=== PATIENT | female | born 1990 | race Hispanic/Latino ===

== ENCOUNTER 2017-09-20 13:08 | Inpatient (IN) | payer OTHER ==
[2017-09-20] MEDS ORDERED: Carboprost 250 MCG/ML AMP IM PRN (14:07)
[2017-09-20] MEDS ORDERED: LR / Pitocin 40 units/1000 ml 1,000 ML IV PRN (14:07)
[2017-09-20] MEDS ORDERED: Diphenoxylate HCl/Atropine Tablet PO PRN ×2 (14:07)
[2017-09-20] MEDS ORDERED: Lidocaine 1% (PF) 30 ML VIAL SC PRN (14:07)
[2017-09-20] MEDS ORDERED: Ondansetron HCl/PF 4 MG/2 ML Vial IVP PRN ×2 (14:07→23:05)
[2017-09-20] MEDS ORDERED: Promethazine HCl 25 MG/ML VIAL IM PRN ×2 (14:07→23:05)
[2017-09-20] MEDS ORDERED: HYDROcodone/Acetaminophen 5/325 mg Tablet PO PRN ×2 (14:07)
[2017-09-20] MEDS ORDERED: Ibuprofen 800 MG TAB PO PRN (14:07)
[2017-09-20] MEDS ORDERED: Acetaminophen 500 MG TAB PO PRN (14:07)
[2017-09-20] MEDS ORDERED: Misoprostol 200 MCG TAB PR PRN (14:07)
[2017-09-20] MEDS ORDERED: Methylergonovine 0.2 MG/ML VIAL IM PRN (14:07)
[2017-09-20] MEDS ORDERED: Penicillin G Potassium 5 MILL.UNITS in Sodium Chloride 0.9% 100 ML IVPB SCH (14:15)
[2017-09-20] MEDS ORDERED: LR 500 ML/Oxytocin 10 units 500 ML IV SCH (14:15)
[2017-09-20] MEDS: Lactated Ringer's 1,000 ML IV SCH ×3 (14:15→23:10)
[2017-09-20] MEDS ORDERED: Penicillin G Potassium 5 MILL.UNITS VIAL ONE (14:33)
[2017-09-20 14:53] LABS: Hemoglobin 11.4 g/dL (12.0-16.0); Mean Corpuscular HGB CONC 33.6 g/dL (32.0-36.0); Mean Corpuscular Hemoglobin 29.3 pg (27.0-31.0); Mean Corpuscular Volume 87.1 fl (81.0-99.0); Mean Platelet Volume 7.3 fL (7.4-10.4); Platelet Count 339 thou/uL (130-400); RBC Distribution Width 13.9 % (11.5-14.5); White Blood Cell (WBC) Count 8.9 thou/uL (4.8-10.8)
[2017-09-20 15:31] LABS: HBSAg Index 0.15 S/CO (0-0.99); Hep B Surf Ag Non-Reactive S/CO (NonReactive); Syphilis Antibody Nonreactive (Nonreactive); Syphilis Antibody Index 0.03 S/CO (<1.00 Non-Reactive)
[2017-09-20 17:41] VITALS: BMI 31.9
[2017-09-20] MEDS: Penicillin G 2.5 MILL.units 2.5 MILL.UNITS in Premix Bag 1 BAG IVPB SCH ×2 (18:06→22:30)
[2017-09-20] MEDS ORDERED: Bupivacaine 0.5% 20 ML, Fentanyl 400 MCG in Sodium Chloride 0.9% 72 ML EPIDURAL SCH (19:30)
[2017-09-20] MEDS ORDERED: DISCONTINUE ALL PREVIOUS NARCOTICS FS SCH (19:30)
[2017-09-20] MEDS ORDERED: Lactated Ringer's 500 ML IV PRN (23:05)
[2017-09-20] MEDS ORDERED: Naloxone HCl 0.4 mg/ml Vial IVP PRN ×2 (23:05)
[2017-09-20] MEDS ORDERED: ePHEDrine/0.9% NaCl/PF SYRINGE 50 mg/10 ml SLOW IVP PRN (23:05)
[2017-09-20] MEDS ORDERED: diphenhydrAMINE 50 MG/ML VIAL IVP PRN (23:05)
[2017-09-20] MEDS ORDERED: Acetaminophen 325 MG TAB PO PRN (23:05)
[2017-09-20] MEDS ORDERED: Eucerin (Mineral Oil/Petrolatum,White) 30 gm Jar TOP PRN (23:05)
[2017-09-20] MEDS ORDERED: Fentanyl 4mcg/Marcaine 0.1% Cassette 100 ML EPIDURAL SCH (23:15)
[2017-09-20] MEDS ORDERED: Communication Order-Pharmacy FS SCH (23:15)
[2017-09-21] MEDS: Penicillin G 2.5 MILL.units 2.5 MILL.UNITS in Premix Bag 1 BAG IVPB SCH ×2 (03:31→11:10)
[2017-09-21] MEDS ORDERED: LR / Pitocin 40 units/1000 ml 1,000 ML ONE (04:12)
[2017-09-21] MEDS ORDERED: Lidocaine 1% (PF) 30 ML VIAL ONE (04:12)
--- NOTE | 2017-09-21 07:16 | PDOC.OPDEL ---
OB Operative/Delivery Note Delivery Dr/Surgeon: Tracy Assist: n/a Pre-Delivery Diagnosis: ruptured membrane Procedure/Post Delivery Dx: spontaneous vaginal delivery Weeks gestation: 38 Anesthesia: epidural - Findings A Sex: male Weight: 7 lb 15 oz - 1 min: 9 - 5 min: 9 - Additional Findings/Plan Placenta delivered: spontaneous Repaired Obstetrical Laceration: 2nd degree (repaired with 2-0 vicryl in usual fashion excellent hemostasis) Estimated blood loss: 300 Post delivery plan: routine recovery
--- NOTE | 2017-09-21 07:17 | PDOC.LDHP ---
Labor and Delivery H&P Chief complaint: loss of fluid HPI: 27yo at 37w6d with spotting and LOF since 0800 yesterday, confirmed rupture in office. Current gestational age (weeks): 37 Dating criteria: last menstrual period Grav: 1 Para: 0 Current complications: none Abnormal US findings: No Current medications: pre- vitamins Allergies/Adverse Reactions: Allergies Allergy/AdvReac Type Severity Reaction Status Date / Time cefaclor [From Ceclor] Allergy Verified 09/20/17 14:35 Social history: none - Physical Exam Vital signs reviewed and normal: yes General: NAD Heart: RRR Lungs: CTAB Abdomen: gravid Extremeties: no edema FHT: category 1 - Vaginal Exam cm dilated: 2 Effacement: 75% Station: -1 - OB Labs RH: positive Antibody Screen: negative HIV: negative RPR: negative HEPSAg: negative 1 hour GCT: positive 3 hour GTT: negative GBS: positive Rubella: immune - Assessment L&D Assessment: term rupture in membranes - Plan Plan: admit to L&D, labor augmentation if indicated, GBS antibiotic prophylaxis , informed consent obtained, anesthesia consult for pain management
[2017-09-21] MEDS ORDERED: Adacel (T-DAP) 0.5 ML VIAL IM ONE (10:41)
[2017-09-21] MEDS ORDERED: diphenhydrAMINE 25 MG CAP PO PRN (10:41)
[2017-09-21] MEDS ORDERED: Milk Of Magnesia 30 ML UDCUP PO PRN (10:41)
[2017-09-21] MEDS ORDERED: Acetaminophen/Codeine 30-300mg Tablet PO PRN ×2 (10:41)
[2017-09-21] MEDS ORDERED: Preparation H Ointment 28 GM TUBE PR PRN (10:41)
[2017-09-21] MEDS ORDERED: LR / Pitocin 40 units/1000 ml 1,000 ML IV SCH (10:41)
[2017-09-21] MEDS ORDERED: Benzocaine/Menthol 20-0.5% 60 ML CAN TOP PRN (10:41)
[2017-09-21] MEDS ORDERED: Bisacodyl 10 MG SUPP PR PRN (10:41)
[2017-09-21] MEDS ORDERED: Ondansetron HCl/PF 4 MG/2 ML Vial IVP PRN (10:41)
[2017-09-21] MEDS ORDERED: Lanolin Ointment 7 GM TUBE TOP PRN (10:41)
[2017-09-21] MEDS: Ferrous Sulfate 325 MG TAB PO SCH ×2 (11:19→14:19)
[2017-09-21] MEDS: Docusate Calcium (SURFAK) 240 MG CAP PO SCH ×2 (11:58→21:11)
[2017-09-21] MEDS: Prenatal Vitamin 1 TAB PO SCH (11:58)
[2017-09-21] MEDS: Ibuprofen 800 MG TAB PO SCH ×2 (14:14→21:11)
[2017-09-22] MEDS: Ibuprofen 800 MG TAB PO SCH ×3 (03:57→21:36)
--- NOTE | 2017-09-22 08:11 | PRG ---
DATE OF SERVICE: 09/22/2017 PRIMARY OB: Dr. Syl Molina. Patient is day #1, status post a term spontaneous vaginal delivery. She is tolerating p.o ., voiding on her own, having decreased lochia and good pain control. PHYSICAL EXAMINATION: VITAL SIGNS: This morning, blood pressure is 94/56, temperature 97.7, pulse of 96, respiratory rate of 20. GENERAL: She appears to be in no acute distress. She is alert and oriented, cooperative, and pleasa nt to interact with. HEENT: Head is normocephalic, atraumatic. ABDOMEN: Soft. Fundus is firm. EXTREMITIES: Nontender, nonedematous. ASSESSMENT AND PLAN: The patient is day #1, status post an uncomplicated term spontaneous vaginal delivery. Anticipate discharge tomorrow.
[2017-09-22] MEDS: Prenatal Vitamin 1 TAB PO SCH (08:36)
[2017-09-22] MEDS: Docusate Calcium (SURFAK) 240 MG CAP PO SCH ×2 (08:36→21:36)
[2017-09-22] MEDS: Ferrous Sulfate 325 MG TAB PO SCH (08:36)
[2017-09-23] MEDS: Ferrous Sulfate 325 MG TAB PO SCH ×2 (03:18→12:37)
[2017-09-23] MEDS: Ibuprofen 800 MG TAB PO SCH (05:54)
--- NOTE | 2017-09-23 07:01 | PDOC.PP ---
Post Progress Note Post Day #: 2 Subjective: Doing well PO intake tolerated: yes Flatus: yes Ambulation: yes Vital Signs (12 hours) Temp Pulse Resp BP 09/22/17 20:15 97.5 F L 83 18 102/63 Weight Weight 169 lb - Physical Examination General: NAD Cardiovascular: no m/r/g, RRR Respiratory: clear to auscultation bilaterally Abdominal: no distention, appropriately TTP Extremities: negative homans (B) Psychiatric: A&Ox3, normal affect Result Diagrams: 09/20/17 14:43 Additional Labs: Post Labs Hep Bs Antigen Non-Reactive S/CO (NonReactive) 09/20/17 14:43 (1) Vaginal delivery Code(s): O80 - ENCOUNTER FOR FULL-TERM UNCOMPLICATED DELIVERY Status: Acute (2) state Code(s): Z39.2 - ENCOUNTER FOR ROUTINE FOLLOW-UP Status: Acute - Assessment/Plan Plan: Patient seen at bedside. OK for discharge today. No acute concerns noted. Home with follow up in 4 weeks. Delivery MD: Tracy
--- NOTE | 2017-09-23 07:02 | PDOC.EVN ---
Event Note - Event Note Event Note: DISCHARGE NOTE Patient seen by me on date of discharge (PPD2), 09/23/17. Patient s/p by Dr Molina. Home on 09/23/17 without complication. Please see PPD2 progress notes.
[2017-09-23] MEDS: Prenatal Vitamin 1 TAB PO SCH (08:25)
[2017-09-23] MEDS: Docusate Calcium (SURFAK) 240 MG CAP PO SCH (08:25)
[2017-09-23 08:35] VITALS: TEMP 98.5
[2017-09-23 08:36] VITALS: BP 105/66
== END 2017-09-23 12:05 | disposition home or self-care (01) | DRG 775 ==
LOC: L&D/OP 13:08 → L&D 13:32 → 3SW 09-21 10:14
PROVIDERS: ADMIT Student in an Organized Health Care Education/Training Program; ATTEND Student in an Organized Health Care Education/Training Program
PROC: 10E0XZZ Delivery of Products of Conception, External Approach (ICD-10-PCS; principal; 2017-09-21)
PROC: 0KQM0ZZ Repair Perineum Muscle, Open Approach (ICD-10-PCS; 2017-09-21)
DX: O42.02 Full-term premature rupture of membranes, onset of labor within 24 hours of rupture (principal); O70.1 Second degree perineal laceration during delivery; O99.820 Streptococcus B carrier state complicating pregnancy; Z3A.37 37 weeks gestation of pregnancy; Z88.1 Allergy status to other antibiotic agents; Z37.0 Single live birth
CPT/HCPCS: 36415; 51702; 85027; 86780; 87340; 99285; J2001; J2405; J2540; J2550; J3010; J3490; J7050; J7120

== ENCOUNTER 2019-03-12 08:47 | Day surgery (SDC) | payer OTHER ==
[2019-03-12 09:27] VITALS: BMI 31.5
[2019-03-12] MEDS ORDERED: Mineral Oil ENEMA PR SCH (09:30)
[2019-03-12] MEDS ORDERED: Mineral Oil PER 1 ML PO SCH (09:45)
--- NOTE | 2019-03-12 10:18 | PDOC.EVN ---
Event Note - Event Note Event Note: Asked to see by Dr. Molina, pt. here for ECV. USG shows vtx, BHUMIKA appears adequate. FHTs are reassuring. Dr. Molina notified.
[2019-03-12] MEDS ORDERED: hydrALAZINE 20 MG/ML VIAL SLOW IVP PRN (10:32)
--- NOTE | 2019-03-12 10:34 | PDOC.EVN ---
Event Note - Event Note Event Note: 28yo at 37w6d presented for ECV due to transverse presentation. No complaints, good FM, no ctx VB LOF. No sx PIH VSSAF NAD NST reactive Cat 1 Sono by josefa Estrella DC home FU on .
== END 2019-03-12 10:36 | disposition home or self-care (01) ==
LOC: L&D/OP 08:47
PROVIDERS: ATTEND Student in an Organized Health Care Education/Training Program
DX: O32.2XX0 Maternal care for transverse and oblique lie, not applicable or unspecified (principal); Z3A.37 37 weeks gestation of pregnancy; Z88.1 Allergy status to other antibiotic agents
CPT/HCPCS: 76815

== ENCOUNTER 2019-03-16 09:24 | Inpatient (IN) | payer OTHER ==
[2019-03-16] MEDS ORDERED: Ibuprofen 800 MG TAB PO PRN (10:28)
[2019-03-16] MEDS ORDERED: Butorphanol Tartrate 1 MG/ML VIAL SLOW IVP PRN (10:28)
[2019-03-16] MEDS ORDERED: Promethazine HCl 25 MG/ML VIAL IM PRN ×2 (10:28→17:40)
[2019-03-16] MEDS ORDERED: HYDROcodone/Acetaminophen 5/325 mg Tablet PO PRN ×2 (10:28)
[2019-03-16] MEDS ORDERED: Ondansetron PF 4 MG/2 ML Vial IVP PRN ×2 (10:28→17:40)
[2019-03-16] MEDS ORDERED: hydrALAZINE 20 MG/ML VIAL SLOW IVP PRN (10:28)
[2019-03-16] MEDS ORDERED: Lidocaine 1% (PF) 30 ML VIAL SC PRN (10:28)
[2019-03-16] MEDS ORDERED: Lactated Ringer's 1,000 ML IV SCH (10:30)
[2019-03-16] MEDS ORDERED: Penicillin G Potassium 5 MILL.UNITS in Sodium Chloride 0.9% 100 ML IVPB SCH (10:30)
[2019-03-16] MEDS ORDERED: NS w/ Oxytocin 10 units 500 ML IV SCH (10:30)
[2019-03-16 10:54] VITALS: BMI 31.4
[2019-03-16] MEDS: Lactated Ringer's 1,000 ML IV SCH ×2 (12:05→20:21)
[2019-03-16 12:28] LABS: Hemoglobin 11.2 g/dL (12.0-16.0); Mean Corpuscular HGB CONC 34.3 g/dL (32.0-36.0); Mean Corpuscular Hemoglobin 29.5 pg (27.0-31.0); Mean Corpuscular Volume 86.2 fL (78.0-98.0); Mean Platelet Volume 7.7 fL (7.4-10.4); Platelet Count 294 thou/uL (130-400); RBC Distribution Width 12.2 % (11.5-14.5); Red Blood Cell (RBC) Count 3.79 mill/uL (4.20-5.40); White Blood Cell (WBC) Count 7.1 thou/uL (4.8-10.8)
[2019-03-16 13:07] LABS: Syphilis Antibody Nonreactive (Nonreactive); Syphilis Antibody Index 0.03 S/CO (<1.00 Non-Reactive)
[2019-03-16 13:08] LABS: HBSAg Index 0.25 S/CO (0-0.99); Hep B Surf Ag Non-Reactive S/CO (NonReactive)
[2019-03-16] MEDS: Penicillin G 2.5 MILL.units 2.5 MILL.UNITS in Premix Bag 1 BAG IVPB SCH ×2 (16:15→20:21)
--- NOTE | 2019-03-16 16:55 | PDOC.FPROB ---
FMR OB H&P: HPI - History of Present Illness Chief Complaint: SROM Indentification: 28yo at 38.3wks History of Present Illness: 28yo at 38.3wks presents with SROM at 7am. Denies CTX at that time. No abnormal discharge. Endorses FM. Pt of Dr Molina's. Asked Dr Estrella to resume care. Primary Care Physician: Dr Molina FMR OB H&P: Current - Care : 2 Para: 1 Gestational age: 38.3 Course/Complications: Successful ECV on 03/12/19 for transverse presentation - OB Labs Blood type: O RH: positive Antibody Screen: negative HIV: negative RPR: negative HepBsAg: negative Rubella: immune GBS: positive FMR OB H&P: History - Past Medical History PMH: None - OB History OB History: August 2017 - Surgical History Sx History: None - Social History Social History: Denies alcohol, tobacco, drug use - Family History Family History: Father with DM Mother with HTN FMR OB H&P: Medications - Current Home Medications: Medication Instructions Recorded Confirmed Type Vitamin 1 tab PO DAILY 09/20/17 03/16/19 History Allergies/Adverse Reactions: Allergies Allergy/AdvReac Type Severity Reaction Status Date / Time cefaclor [From [facility]] Allergy Verified 03/16/19 10:45 FMR OB H&P: ROS - Review of Systems General: denies: fever/chills, fatigue Eyes: denies: vision changes, double vision ENT: denies: nasal congestion, rhinorrhea Cardiovascular: denies: chest pain, palpitation Respiratory: denies: cough, shortness of breath Gastrointestinal: denies: abdominal pain, nausea, vomiting Genitourinary (Female): denies: dysuria, hematuria Musculoskeletal: denies: pain, swelling Neurologic: denies: weakness, headache Integumentary: denies: itching, rash FMR OB H&P: Vital Signs - Maternal Vital signs: Selected Entries 09/23/17 08:30 Temperature 98.5 F Pulse Rate 88 Blood Pressure 105/66 [Semi-Fowlers] Respiratory 18 Rate - Heart Tones Baseline: 130 Variability: moderate Acceleration: present Deceleration: absent Category: category 1 [place] contractions every: 2-3min FMR OB H&P: Physical Exam - Physical Exam General: NAD, awake, alert and oriented HEENT: normocephalic and atraumatic, MMM, oropharynx clear Neck: supple, trachea midline Heart: RRR, no murmurs/rubs/gallops General: CTAB, no respiratory distress, no wheezing Abdomen: soft, gravid, non-tender, bowel sound present Musculoskeletal: pulses present, no misalignment/asymmetry, no atrophy Neurological: no focal deficit Skin: no rash, good tugor Lymphatic: no unusual bruising or bleeding Psychiatric: intact recent and remote memory, good judgement and insight, normal mood and affect - Pelvic Exam Vulva: normal hair distribution, appropriate shelly stage, no lesions SVE: /-1 Presentation: cephalic FMR OB H&P: Results - Labs Lab results: Laboratory Results - last 24 hr 03/16/19 03/16/19 03/16/19 12:07 12:07 12:07 WBC RBC Hgb Hct MCV MCH MCHC RDW Plt Count MPV Syphilis IgG/IgM Ab Nonreactive Hep Bs Antigen Non-Reactive Blood Type O POSITIVE Antibody Screen NEGATIVE 03/16/19 12:07 WBC 7.1 RBC 3.79 L Hgb 11.2 L Hct 32.7 L MCV 86.2 MCH 29.5 MCHC 34.3 RDW 12.2 Plt Count 294 MPV 7.7 Syphilis IgG/IgM Ab Hep Bs Antigen Blood Type Antibody Screen FMR OB H&P: A/P Disposition: 28yo at 38.3wks presents in labor sIUP - FHTs 130 Cat 1. CTX every 2-3min - SROM, clear fluid - Currently on Pit @20 - Desires epidural at some point - Continue serial cervical checks Discussion: Date/Time: 03/16/19 7051 This H&P was discussed with [] and [] who agree with the above documentation and plan. Addendum - Attending - Attending Attestation Date/Time: 03/17/19 0604 I personally evaluated the patient and discussed the management with Dr. Sloan. I agree with the History, Examination, Assessment and Plan documented above.
[2019-03-16] MEDS ORDERED: Fentanyl 4 mcg/Bup 0.1% Cadd 100 ML ONE (17:07)
--- NOTE | 2019-03-16 17:09 | PDOC.EVN ---
Event Note - Event Note Event Note: Asked to manage and deliver by Dr. Molina this 28 yo LAF at term. Presented with SROM, NIL. ABX started for +GBS status and pitocin induction initiated. Last exam was 6 cm. FHTs stable. Ucs q 3-4 min, pit @ 20 mu/min. Requesting epidural.
[2019-03-16] MEDS ORDERED: Naloxone HCl 0.4 mg/ml Vial IVP PRN ×2 (17:40)
[2019-03-16] MEDS ORDERED: ePHEDrine/0.9% NaCl/PF SYRINGE 50 mg/10 ml SLOW IVP PRN (17:40)
[2019-03-16] MEDS ORDERED: diphenhydrAMINE 50 MG/ML VIAL IVP PRN (17:40)
[2019-03-16] MEDS ORDERED: Acetaminophen 325 MG TAB PO PRN (17:40)
[2019-03-16] MEDS ORDERED: Lactated Ringer's 500 ML IV PRN (17:40)
[2019-03-16] MEDS ORDERED: Communication Order-Pharmacy FS SCH (17:45)
[2019-03-16] MEDS ORDERED: Fentanyl 4 mcg/Bupivacaine 0.1% Cassette 100 ML EPIDURAL SCH (17:45)
--- NOTE | 2019-03-16 18:21 | PDOC.EVN ---
Event Note - Event Note Event Note: Comfortable with epidural. SVe by me = 6/80/0, vtx. FHTs reassuring. Ucs q 2-3 min. Pit @ 20 mu/min. Will place IUPC to evaluate UCs and cont. induction.
--- NOTE | 2019-03-16 22:54 | PDOC.LDPN ---
Labor & Delivery Progress Note - Subjective Subjective: comfortable - Objective Vital signs reviewed and normal: yes General: NAD, resting Uterine fundus: non tender Dilation: 7 Effacement: 100% Station: -1 FHT: category 1 [place] contractions every: 2-3min AROM: clear fluid IUPC placed: yes Plan: continue plan of care, labor augmentation -: SVE now 100/-1 Pit @22 Pt comfortable with epidural Will recheck in 2 hours. Addendum - Attending - Attending Attestation Date/Time: 03/17/19 0605 I personally evaluated the patient and discussed the management with Dr. Sloan. I agree with the Assessment and Plan documented above.
[2019-03-16] MEDS ORDERED: Methylergonovine 0.2 MG/ML VIAL ONE (23:39)
[2019-03-16] MEDS: NS / Oxytocin 40 units/1000ml 1,000 ML IV PRN (23:42)
[2019-03-16] MEDS ORDERED: Misoprostol 200 MCG TAB ONE (23:52)
--- NOTE | 2019-03-17 00:10 | PDOC.OPDEL ---
OB Operative/Delivery Note Delivery Dr/Surgeon: Delores Assist: Luther Pre-Delivery Diagnosis: active labor Procedure/Post Delivery Dx: spontaneous vaginal delivery Weeks gestation: 38 Anesthesia: epidural - Additional Findings/Plan Placenta delivered: spontaneous Repaired Obstetrical Laceration: 2nd degree Estimated blood loss: 400 cc Compilations/Other Findings: Viable male OA Apgars 8/9 Placenta intact [place] Small 2* lac repaired w/ 2-0 chromic. Small sidewall hematoma seen, not expanding Atony x 2 tx with Methergine .2 IM and Cytotec 800 mg [place] with good effect To recover in L&D
[2019-03-17] MEDS ORDERED: Misoprostol 200 MCG TAB ONE ×3 (00:14)
[2019-03-17] MEDS: Penicillin G 2.5 MILL.units 2.5 MILL.UNITS in Premix Bag 1 BAG IVPB SCH ×2 (00:31→21:17)
[2019-03-17] MEDS: NS / Oxytocin 40 units/1000ml 1,000 ML IV PRN (01:58)
[2019-03-17] MEDS ORDERED: hydrALAZINE 20 MG/ML VIAL SLOW IVP PRN (02:45)
[2019-03-17] MEDS ORDERED: Milk Of Magnesia 30 ML UDCUP PO PRN (02:45)
[2019-03-17] MEDS ORDERED: NS / Oxytocin 40 units/1000ml 1,000 ML IV SCH (02:45)
[2019-03-17] MEDS ORDERED: Preparation H Ointment 28 GM TUBE PR PRN (02:45)
[2019-03-17] MEDS ORDERED: Ondansetron PF 4 MG/2 ML Vial IVP PRN (02:45)
[2019-03-17] MEDS ORDERED: Bisacodyl 10 MG SUPP PR PRN (02:45)
[2019-03-17] MEDS ORDERED: Lanolin Ointment 7 GM TUBE TOP PRN (02:45)
[2019-03-17] MEDS ORDERED: Promethazine HCl 25 MG/ML VIAL IM PRN (02:45)
[2019-03-17] MEDS: Ibuprofen 800 MG TAB PO SCH ×4 (05:29→21:34)
[2019-03-17] MEDS: Prenatal Vitamin 1 TAB PO SCH (08:50)
[2019-03-17] MEDS: Docusate Calcium (SURFAK) 240 MG CAP PO SCH ×2 (08:50→21:34)
[2019-03-17] MEDS: Ferrous Sulfate 325 MG TAB PO SCH ×2 (08:52→16:01)
[2019-03-17] MEDS ORDERED: Bupivacaine/Epinephrine 0.25% 30 ML VIAL ONE (11:11)
[2019-03-17] MEDS ORDERED: Adacel (T-DAP) 0.5 ML SYRINGE IM ONE (21:00)
[2019-03-17] MEDS: Lactated Ringer's 1,000 ML IV SCH (21:17)
[2019-03-18] MEDS: Ibuprofen 800 MG TAB PO SCH ×2 (05:31→14:51)
[2019-03-18 07:57] VITALS: BP 102/65; TEMP 98
--- NOTE | 2019-03-18 08:10 | PDOC.PP ---
Post Progress Note Post Day #: 1 PO intake tolerated: yes Flatus: yes Ambulation: yes Vital Signs (12 hours) Temp Pulse Resp BP Pulse Ox 03/18/19 07:56 98.0 F 78 20 102/65 97 03/18/19 05:35 98.1 F 79 20 104/63 03/17/19 23:25 98.1 F 83 20 100/60 03/17/19 20:15 98.3 F 95 20 91/55 L 99 Weight Weight 166 lb - Physical Examination General: NAD Respiratory: non-labored breathing Abdominal: no distention, appropriately TTP Fundus firm & at: umb Extremities: negative homans (B) Neurological: no gross focal deficits Psychiatric: A&Ox3 Result Diagrams: 03/16/19 12:07 Additional Labs: Post Labs Blood Type O POSITIVE 03/16/19 12:07 Hep Bs Antigen Non-Reactive S/CO (NonReactive) 03/16/19 12:07 - Assessment/Plan PPD1 s/p TSVD VSSAF Doing well no complaints Pain controlled Rh pos RImm DC home FU 6w
[2019-03-18] MEDS: Docusate Calcium (SURFAK) 240 MG CAP PO SCH (09:43)
[2019-03-18] MEDS: Ferrous Sulfate 325 MG TAB PO SCH (09:43)
[2019-03-18] MEDS: Prenatal Vitamin 1 TAB PO SCH (09:43)
--- NOTE | 2019-03-20 08:08 | PQF ---
DATE:03/20/2019 ATTN: Milton Estrella MD Please exercise your independent, professional judgment in responding to the clarification form. Clinical indicators are provided on the bottom of this form for your review Please check appropriate box(s): [x ] Uterine atony with bleeding [ ] Uterine atony with out bleeding [ ] Expected bleeding [ ] Other diagnosis [ ] Unable to determine CLINICAL INDICATORS - SIGNS / SYMPTOMS / LABS - Atony x2 - OB-OP & delivery note, 03/17, Milton Estrella MD - Small sidewall hematoma seen, not [id number] & delivery note, 03/17, Milton Estrella MD - Estimated bleedincc-OB-OP & delivery note, 03/17, Milton Estrella MD - Placenta intact [id number] & delivery note, 03/17, Milton Estrella MD RISK FACTORS - Obstetrical laceration: 2nd [id number] & delivery note, 03/17, Milton Estrella MD - Spontaneous vaginal [id number] & delivery note, 03/17, Milton Estrella MD TREATMENT: - Methergine 2.IM-OB-OP & delivery note, 03/17, Milton Estrella MD - Cytotec 800 mcg-OB-OP & delivery note, 03/17, Milton Estrella MD MTDD
== END 2019-03-18 15:00 | disposition home or self-care (01) | DRG 806 ==
LOC: L&D/OP 09:24 → L&D 11:00 → 3SW 03-17 02:35
PROVIDERS: ADMIT Student in an Organized Health Care Education/Training Program; ATTEND Student in an Organized Health Care Education/Training Program
PROC: 10E0XZZ Delivery of Products of Conception, External Approach (ICD-10-PCS; principal; 2019-03-17)
PROC: 0KQM0ZZ Repair Perineum Muscle, Open Approach (ICD-10-PCS; 2019-03-17)
PROC: 10H07YZ Insertion of Other Device into Products of Conception, Via Natural or Artificial Opening (ICD-10-PCS; 2019-03-17)
DX: O70.1 Second degree perineal laceration during delivery (principal); O72.1 Other immediate postpartum hemorrhage; Z37.0 Single live birth; O99.824 Streptococcus B carrier state complicating childbirth; Z3A.38 38 weeks gestation of pregnancy; O69.81X0 Labor and delivery complicated by cord around neck, without compression, not applicable or unspecified
CPT/HCPCS: 36415; 51702; 85027; 86780; 86850; 86900; 86901; 87340; 99285; J2001; J2210; J2405; J2540; J2550; J2590; J3490

== ENCOUNTER 2021-06-14 15:20 | Outpatient (CLI) | payer OTHER | END 2021-06-14 15:21 | disposition home or self-care (01) | LOC: SCSMRI 15:20 | PROVIDERS: ATTEND Internal Medicine | DX: E22.1 Hyperprolactinemia (principal) | CPT/HCPCS: 70553 ==

== ENCOUNTER 2021-07-23 14:00 | Outpatient (CLI) | payer BC | END 2021-07-23 14:01 | disposition home or self-care (01) | LOC: SCSMRI 14:00 | PROVIDERS: ATTEND Psychiatry & Neurology Neurology | DX: G93.5 Compression of brain (principal); Q04.8 Other specified congenital malformations of brain | CPT/HCPCS: 72141; 72146; 72148 ==